=== PATIENT | female | born 1975 | race Caucasian/White ===

== ENCOUNTER 2017-06-20 16:51 | Emergency (ER) | payer BC ==
[~2017-06-20 16:51] MED LIST: ISOVUE-370 76%-LOCM 1 ML ONE; Iopamidol 370 76% 50 ML VIAL FS ONE
[2017-06-20 17:09] LABS: #Eosinphils 0.2 thou/uL (0.0-0.7); #Lymphocytes 2.6 thou/uL (1.20-3.40); #Monocytes 0.5 thou/uL (0.11-0.59); #Neutrophils 3.9 thou/uL (1.40-6.50); %Basophils 0.6 % (0.0-1.0); %Eosinophils 2.6 % (0.0-10.0); %Lymphocytes 35.9 % (21.0-51.0); %Monocytes 6.4 % (0.0-10.0); Hematocrit 42.1 % (36.0-47.0); Mean Platelet Volume 7.3 fL (7.4-10.4); Red Blood Cell (RBC) Count 4.61 mill/uL (4.20-5.40); White Blood Cell (WBC) Count 7.2 thou/uL (4.8-10.8)
[2017-06-20 17:37] LABS: ALT (SGPT) 9 U/L (8-55); AST (SGOT) 13 U/L (5-34); Alkaline Phosphatase 100 U/L (40-150); Anion Gap 12 mmol/L (10-20); BUN (Urea Nitrogen) 8 mg/dL (7.0-18.7); Bilirubin, Total 0.5 mg/dL (0.2-1.2); Calc. Creatinine Clearance 0 mL/min (70-130); Calcium 8.7 mg/dL (7.8-10.44); Carbon Dioxide 19 mmol/L (22-29); Chloride 110 mmol/L (98-107); Estimated GFR-MDRD 81; Lipase 10 U/L (8-78); Protein, Total 6.8 g/dL (6.0-8.3)
[2017-06-20] MEDS ORDERED: Lidocaine Viscous Sol 2% 15 ml UD Cup ONE (18:11)
[2017-06-20] MEDS ORDERED: Mag-Al 1200 mg/1200 mg/30 ML UDCUP ONE (18:12)
[2017-06-20] MEDS ORDERED: Ondansetron HCl/PF 4 MG/2 ML Vial ONE ×2 (18:12→18:27)
[2017-06-20 18:41] LABS: Bilirubin Negative (Negative); Blood, Urine Negative (Negative); Glucose, Urine (Dipstick) Negative (Negative); Ketone, Urine Negative (Negative)
[2017-06-20 18:42] LABS: Nitrite Negative (Negative); Protein, Urine (Dipstick) Negative (Neg-Trace); Urobilinogen 0.2 mg/dL (0.2-1.0)
--- NOTE | 2017-06-20 21:45 | CT ---
CT OF THE ABDOMEN AND PELVIS WITH IV CONTRAST: 06/20/17 INDICATION: 41-year-old female with left upper quadrant abdominal pain. COMPARISON: Prior exam dated 10/27/16. FINDINGS: ABDOMEN: There is bibasilar atelectasis. The liver, spleen, pancreas, adrenal glands and kidneys appear within normal limits. No free fluid or enlarged lymph nodes are evident. PELVIS: There is a normal appendix in the right lower quadrant. There is a 5.5 cm hypodensity within the right adnexa. The bladder, rectum and perirectal soft tissu es are unremarkable. Previously seen left ovarian follicular cyst has resolved. The visualized colon appears within normal limits. OSSEOUS STRUCTURES: No definite acute osseous abnormality is evident. There is scattered degenerative and osteoarthritic change. IMPRESSION: 1. Right ovarian cystic abnormality measuring 5.5 cm. A followup pelvic ultrasound in 6 to 8 we eks is recommended to document resolution. 2. No additional acute abnormality. POS: [facility]
== END 2017-06-20 20:05 | disposition home or self-care (01) ==
LOC: ERS 16:51
DX: R10.12 Left upper quadrant pain (principal); E03.9 Hypothyroidism, unspecified; Z79.899 Other long term (current) drug therapy
CPT/HCPCS: 36415; 74177; 80053; 81003; 81025; 82150; 83690; 85025; 96374; J2405